=== PATIENT | female | born 1955 | race Two or more races ===

== ENCOUNTER → 2021-07-15 | Emergency (ER) | payer OTHER ==
[~2021-07-15] VITALS: Ht 149.9 cm; Wt 65.8 kg
[~2021-07-15] MED LIST: CEFTRIAXONE 1GM BAG (ER ONLY) 50 ML IV ONE; CEPH500C2 PO; KETOROLAC TROMETHAMINE 15 MG/ML VIAL ONE; KETOROLAC TROMETHAMINE INJ 30 MG/ML VIAL IV ONE
--- NOTE | 2021-07-15 10:45 | NUR ---
PT BIB SON WITH C/O DYSURIA AND HEMATURIA SINCE EARLY THIS MORNING. Alert and oriented. kept comfortable in bed. safety measures in place
--- NOTE | 2021-07-15 10:51 | NUR ---
PT TRANSPORTED BY BED TO CT ABD/PELV[facility]
[2021-07-15 10:59] LABS: BILIRUBIN,URINE NEGATIVE (NEGATIVE); COLOR,URINE RED (YELLOW); LEUKOCYTE ESTERASE ,URINE LARGE (NEGATIVE); NITRITE, URINE NEGATIVE (NEGATIVE); PH,URINE 6.5 (5.0-8.0); PROTEIN,URINE 30 mg/dl (NEGATIVE); UGLUCOSE NEGATIVE (NEGATIVE); UROBILINOGEN,URINE 0.2 EU/dL (0.2)
[2021-07-15 11:07] LABS: BACTERIA,URINE Rare /HPF (None Seen); RBC,URINE 21-50 /HPF (0-2); SQUAMOUS EPITHELIAL CELL,UR Few /HPF (None Seen)
--- NOTE | 2021-07-15 11:11 | NUR ---
PIV INSERTED IN LAC#20. GOOD BLOOD RETURN, INTACT, PATENT AND FLUSHING WELL
[2021-07-15 11:21] LABS: BASOPHILS # (AUTO) 0.1 K/uL (0.0-0.2); BASOPHILS % (AUTO) 0.4 % (0.0-2.0); EOSINOPHILS % (AUTO) 0.7 % (0.0-6.0); HEMATOCRIT 39 % (33-45); LYMPHOCYTES # (AUTO) 2.8 K/uL (0.8-4.8); LYMPHOCYTES % (AUTO) 18.3 % (20.0-44.0); MEAN CORPUSCULAR HGB CONC 33 g/dl (31.0-36.0); MEAN CORPUSCULAR VOLUME 88 fL (82-100); MONOCYTES % (AUTO) 6.8 % (2.0-12.0); NEUTROPHILS # (AUTO) 11.2 K/uL (1.8-8.9); NEUTROPHILS % (AUTO) 73.8 % (43.0-81.0); PLATELET COUNT (AUTO) 317 K/uL (150-450); RED BLOOD CELL COUNT(AUTO) 4.44 MIL/uL (4.0-5.2); WHITE BLOOD COUNT (AUTO) 15.2 K/uL (4.3-11.0)
[2021-07-15 11:29] LABS: CALCIUM, SERUM 8.7 mg/dL (8.5-10.1); CREATININE 0.8 mg/dL (0.6-1.3); POTASSIUM 4.2 mmol/L (3.5-5.1)
--- NOTE | 2021-07-15 11:29 | NUR ---
ADDENDUM: Intravenous End Time Documentation: Rocephin 1 gram IVPB: start time: 1129 am ; end time:1159 am IV site:LAC PIV # 20 Port # 1
[2021-07-15 13:02] VITALS: BP 135/80
--- NOTE | 2021-07-15 13:07 | NUR ---
Patient discharged to home in stable condition. Written and verbal after care instructions given. Patient verbalizes understanding of instruction.
== END | disposition home or self-care (01) ==
LOC: EDSEX 10:28 → ER 10:28
DX: N39.0 Urinary tract infection, site not specified (principal); I10 Essential (primary) hypertension; E78.00 Pure hypercholesterolemia, unspecified; E03.9 Hypothyroidism, unspecified
CPT/HCPCS: 36415; 74176; 80048; 81001; 85025; 87077; 87086; 87186; 96365; 96375; 99284; J0696; J1885

== ENCOUNTER 2024-10-12 05:31 | Emergency (ER) | payer MEDICARE, OTHER ==
[~2024-10-12] VITALS: Ht 162.6 cm; Wt 74.8 kg
[~2024-10-12 05:31] MED LIST changes: -CEFTRIAXONE 1GM BAG (ER ONLY) 50 ML IV ONE; -KETOROLAC TROMETHAMINE 15 MG/ML VIAL ONE; -KETOROLAC TROMETHAMINE INJ 30 MG/ML VIAL IV ONE
[2024-10-12] MEDS ORDERED: ONDANSETRON HCL/PF 4 MG/2 ML VIAL ONE (06:21)
[2024-10-12] MEDS ORDERED: MECLIZINE HCL 25 MG TABLET ONE (06:22)
[2024-10-12] MEDS: IV NS 0.9% 500 ML BAG IV ONE (06:25)
[2024-10-12] MEDS: ONDANSETRON HCL/PF 4 MG/2 ML VIAL IV ONE (06:26)
[2024-10-12] MEDS: MECLIZINE HCL 25 MG TABLET PO ONE (06:26)
[2024-10-12 06:28] LABS: BASOPHILS # (AUTO) 0.1 K/uL (0.0-0.2); BASOPHILS % (AUTO) 0.6 % (0.0-2.0); EOSINOPHILS % (AUTO) 0.3 % (0.0-6.0); HEMATOCRIT 37 % (33-45); HEMOGLOBIN 12.3 g/dL (11.5-14.8); LYMPHOCYTES # (AUTO) 1.6 K/uL (0.8-4.8); LYMPHOCYTES % (AUTO) 11.7 % (20.0-44.0); MEAN CORPUSCULAR HEMOGLOBIN 29 PG (26.0-33.0); MEAN CORPUSCULAR HGB CONC 33 g/dl (31.0-36.0); MEAN CORPUSCULAR VOLUME 87 fL (82-100); MONOCYTES # (AUTO) 0.7 K/uL (0.1-1.30); MONOCYTES % (AUTO) 5.3 % (2.0-12.0); NEUTROPHILS # (AUTO) 11.1 K/uL (1.8-8.9); NEUTROPHILS % (AUTO) 82.1 % (43.0-81.0); PLATELET COUNT (AUTO) 247 K/uL (150-450); RED BLOOD CELL COUNT(AUTO) 4.24 MIL/uL (4.0-5.2); RED CELL DISTRIBUTION WIDTH 12.8 % (11.5-15.0); WHITE BLOOD COUNT (AUTO) 13.5 K/uL (4.3-11.0)
[2024-10-12 06:43] LABS: ALBUMIN 3.6 g/dL (3.4-5.0); BILIRUBIN,TOTAL 0.3 mg/dL (0.2-1.0); CALCIUM, SERUM 8.7 mg/dL (8.5-10.1); CREATININE 0.7 mg/dL (0.6-1.3); POTASSIUM 3.9 mmol/L (3.5-5.1); TOTAL PROTEIN, SERUM 7.3 g/dL (6.4-8.2)
[2024-10-12] MEDS ORDERED: MECL-159 PO (08:58)
[2024-10-12 09:41] VITALS: BP 129/63; TEMP 98.2; O2SAT 99
== END 2024-10-12 09:42 | disposition home or self-care (01) ==
LOC: ER 05:35
DX: I10 Essential (primary) hypertension (principal); E03.9 Hypothyroidism, unspecified; E11.9 Type 2 diabetes mellitus without complications; E78.00 Pure hypercholesterolemia, unspecified
CPT/HCPCS: 99285; 96374; 70450; 96361; 93005; 85025; 36415; 80053; 82962; J8597; J2405; J7040